=== PATIENT | female | born 1965 | race Caucasian/White ===

== ENCOUNTER 2018-04-28 12:28 | Emergency (ER) | payer OTHER ==
[2018-04-28 14:00] VITALS: BP 159/101
--- NOTE | 2018-04-28 14:16 | UC ---
Complaint Female HPI - HPI Summary HPI Summary: dysuria x 2 days + pressure in the pelvic area no fever, no chills, no back/ flank pain - History Of Current Complaint Chief Complaint: UCGU Stated Complaint: URINARY Time Seen by Provider: 04/28/18 14:06 Hx Obtained From: Patient Onset/Duration: Gradual Onset, Lasting Days - 2, Still Present Timing: Constant Severity Initially: Moderate Severity Currently: Moderate Pain Intensity: 0 Character: Burning, Cramping Aggravating Factor(s): Urination Associated Signs And Symptoms: Negative: Fever, Back Pain, Vaginal Bleeding/ Discharge, Vaginal Discharge, Nausea, Vomiting(# Of Episodes =), Genital Swelling, Genital Blisters, Retained Foregin Body (Specify) - Allergies/Home Medications Allergies/Adverse Reactions: Allergies Allergy/AdvReac Type Severity Reaction Status Date / Time No Known Allergies Allergy Verified 04/28/18 13:48 Home Medications: Home Medications Ascorbic Acid TAB* [Vitamin C TAB*] 1 dose PO DAILY 04/28/18 [History Confirmed 04/28/18] Calcium Carbonate [Calcium] 1 dose PO DAILY 04/28/18 [History Confirmed 04/28/18 ] Iron 1 dose PO DAILY 04/28/18 [History Confirmed 04/28/18] Magnesium [Magnesium Elemental] 1 dose PO DAILY 04/28/18 [History Confirmed 12/07] Potassium 1 dose PO BID 04/28/18 [History Confirmed 04/28/18] PMH/Surg Hx/FS Hx/Imm Hx - Additional Past Medical History Additional PMH: cervical cancer Cancer History: Cervical Cancer - Surgical History Surgical History: Yes Surgery Procedure, Year, and Place: bilateral neph tubes. tubal ligation - Family History Known Family History: Negative: Blood Disorder - Social History Alcohol Use: None Substance Use Type: None Smoking Status (MU): Former Smoker Review of Systems All Other Systems Reviewed And Are Negative: Yes Constitutional: Positive: Negative Skin: Positive: Negative Eyes: Positive: Negative ENT: Positive: Negative Respiratory: Positive: Negative Genitourinary: Positive: Dysuria, Frequency Is Patient Immunocompromised?: No Physical Exam Triage Information Reviewed: Yes Appearance: Well-Appearing, No Pain Distress, Well-Nourished, Ill-Appearing Vital Signs: Initial Vital Signs Temp 98.9 F 04/28/18 13:53 Pulse 88 04/28/18 13:53 Resp 18 04/28/18 13:53 BP 159/101 04/28/18 13:53 Pulse Ox 99 04/28/18 13:53 Vital Signs Reviewed: Yes Eye Exam: Normal Eyes: Positive: Conjunctiva Clear ENT: Positive: Normal ENT inspection, Hearing grossly normal, Pharynx normal Neck exam: Normal Neck: Positive: Supple, Nontender, No Lymphadenopathy Respiratory: Positive: Chest non-tender, Lungs clear, Normal breath sounds Cardiovascular: Positive: RRR, No Murmur, Pulses Normal Skin Exam: Normal Complaint Female Dx - Differential Dx/Diagnosis Provider Diagnosis: UTI (urinary tract infection) Discharge - Sign-Out/Discharge Documenting (check all that apply): Patient Departure All imaging exams completed and their final reports reviewed: No Studies - Discharge Plan Condition: Stable Disposition: HOME Prescriptions: Cephalexin CAP* [Keflex CAP*] 500 mg PO TID #21 cap Patient Education Materials: Urinary Tract Infection in Women (DC) Referrals: No Primary Care Phys,NOPCP [Primary Care Provider] - 7 Days - Billing Disposition and Condition Condition: STABLE Disposition: Home
== END 2018-04-28 14:20 | disposition home or self-care (01) ==
LOC: UCCORT 12:28
DX: N39.0 Urinary tract infection, site not specified (principal); Z87.891 Personal history of nicotine dependence; Z85.41 Personal history of malignant neoplasm of cervix uteri; Z85.89 Personal history of malignant neoplasm of other organs and systems
CPT/HCPCS: 81003; 87086; 99202; G0463

== ENCOUNTER 2018-05-22 13:29 | Emergency (ER) | payer OTHER ==
[2018-05-22 13:58] VITALS: BP 143/109
--- NOTE | 2018-05-22 16:13 | UC ---
Complaint Female HPI - HPI Summary HPI Summary: per craft manager ""UTI" Suprapubic pressure, urinary frequency, and dysuria since 04/26/18. Here 04/28/18, treated with cephalexin, and urine culture no growth. Patient stated she hasn't had any improvement. Patient stated she has nephrostomy tubes but can also urinate normally. Finished chemo and radiation in for cervical cancer." -here w/ her Mom -sx x 1 wk now of SP pressure adn dysuria. - History Of Current Complaint Chief Complaint: UCGU Stated Complaint: URINARY Time Seen by Provider: 05/22/18 16:07 Pain Intensity: 5 - Allergies/Home Medications Allergies/Adverse Reactions: Allergies Allergy/AdvReac Type Severity Reaction Status Date / Time No Known Allergies Allergy Verified 05/22/18 13:51 Home Medications: Home Medications Ibuprofen TAB* [Motrin TAB* 600 MG] 600 mg PO Q6H PRN 05/22/18 [History Confirmed 05/22/18] PMH/Surg Hx/FS Hx/Imm Hx Previously Healthy: No - cervical cancer. see HPI - Surgical History Surgical History: Yes Surgery Procedure, Year, and Place: bilateral neph tubes. tubal ligation - Family History Known Family History: Negative: Blood Disorder - Social History Alcohol Use: None Substance Use Type: None Smoking Status (MU): Former Smoker Review of Systems All Other Systems Reviewed And Are Negative: Yes Constitutional: Positive: Chills, Fatigue Skin: Positive: Negative Eyes: Positive: Negative ENT: Positive: Negative Respiratory: Positive: Negative Cardiovascular: Positive: Negative Gastrointestinal: Positive: Negative Genitourinary: Positive: Dysuria Motor: Positive: Negative Neurovascular: Positive: Negative Musculoskeletal: Positive: Negative Neurological: Positive: Negative Psychological: Positive: Negative Is Patient Immunocompromised?: No Physical Exam Triage Information Reviewed: Yes Appearance: Ill-Appearing - s/p chemo/XRT appears chroncially ill, Cachectic Vital Signs: Initial Vital Signs Temp 97.4 F 05/22/18 13:49 Pulse 86 05/22/18 13:49 Resp 16 05/22/18 13:49 BP 143/109 05/22/18 13:49 Pulse Ox 100 05/22/18 13:49 Vital Signs Reviewed: Yes Eye Exam: Normal ENT Exam: Normal ENT: Positive: Pharynx normal Neck exam: Normal Respiratory Exam: Normal Respiratory: Positive: Lungs clear, Normal breath sounds, No respiratory distress, No accessory muscle use Cardiovascular Exam: Normal Cardiovascular: Positive: RRR, No Murmur Abdomen Description: Positive: Soft, Other: - + SP mild tenderness. Negative: CVA Tenderness (R), CVA Tenderness (L), Distended, Guarding Bowel Sounds: Positive: Present Musculoskeletal Exam: Normal Neurological Exam: Normal Psychological Exam: Normal Skin Exam: Normal Complaint Female Dx - Course Course Of Treatment: UA + 3 LE, nitrite neg. -treat keflex. dc abx if urine cx is neg. -will err on side of treatment bc hx and perforation in bladder hx. - Differential Dx/Diagnosis Differential Diagnosis/HQI/PQRI: Cervicitis, Ureteral Stone, Urinary Tract Infection, Other - ? radiation urethritis Provider Diagnosis: Dysuria Discharge - Sign-Out/Discharge Documenting (check all that apply): Patient Departure All imaging exams completed and their final reports reviewed: No Studies - Discharge Plan Condition: Stable Disposition: HOME Prescriptions: Cephalexin CAP* [Keflex CAP*] 500 mg PO TID 10 Days #30 cap Patient Education Materials: Dysuria (ED) Referrals: No Primary Care Phys,NOPCP [Primary Care Provider] - Additional Instructions: -Make sure to keep your follow up appt with your follow up clerk on 06/03. Call us in 2-3 days to request the urine culture results. if the culture is negative, I recommend that we stop the antibiotics. -plenty of fluids. -You should go to ER with any fevers, chills, body aches, nausea, vomiting. Make sure to take a probiotic daily while on antibiotics to help prevent a potential complication of antibiotic use called c diff. Some well known brands that can be found OTC are florastor, align and [employer]. Make sure to complete the entire prescription unless advised otherwise by your health care provider. - Billing Disposition and Condition Condition: STABLE Disposition: Home
== END 2018-05-22 16:27 | disposition home or self-care (01) ==
LOC: UCCORT 13:29
DX: R30.0 Dysuria (principal); R35.0 Frequency of micturition; R29.898 Other symptoms and signs involving the musculoskeletal system; R68.83 Chills (without fever); C53.9 Malignant neoplasm of cervix uteri, unspecified; Z92.21 Personal history of antineoplastic chemotherapy; Z93.6 Other artificial openings of urinary tract status; Z92.3 Personal history of irradiation; Z87.891 Personal history of nicotine dependence
CPT/HCPCS: 81003; 87077; 87086; 87186; 99212; G0463